=== PATIENT | male | born 1980 | race Two or more races ===

== ENCOUNTER 2017-08-09 23:15 | Emergency (ER) | payer OTHER ==
--- NOTE | 2017-08-09 23:31 | CPEKG ---
Heart Rate: 99 RR Interval: 606 P-R Interval: 136 QRSD Interval: 84 QT Interval: 336 QTC Interval: 432 P Montgomery: 82 QRS Montgomery: 89 T Wave Montgomery: 74 EKG Severity - BORDERLINE ECG - EKG Impression: INCOMPLETE ANALYSIS DUE TO MISSING DATA IN PRECORDIAL LEAD(S) EKG Impression: SINUS RHYTHM EKG Impression: BORDERLINE T ABNORMALITIES, ANT-LAT LEADS Electronically Signed By: Michael Ro 13-Aug-2017 11:39:10
[2017-08-09] MEDS ORDERED: ASPIRIN 81 MG CHEWABLE TAB PO ONE (23:38)
--- NOTE | 2017-08-09 23:44 | EDPHY ---
H & P Stated Complaint: CP x few hours Time Seen by Provider: 08/09/17 23:24 HPI/ROS: HPI The patient presents with chest pain which began at about 8:45 p.m. tonight when he went outside into the cold and was shoveling the snow off of his car. It is been constant ever since, he describes it as an indigestion sort of pain which is worse with deep breaths and with leaning forward. He went inside and took a shower and this improved his symptoms somewhat, however they did persist. He noticed when he went outside again his chest pain became worse and it is a bit better now that he is in the emergency department. He did not have any dizziness, diaphoresis, nausea or vomiting. His pain is worse on the left side of his chest. 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 REVIEW OF SYSTEMS Constitutional: No fever, no chills. Eyes: No discharge. ENT: No sore throat. Cardiovascular: Positive for chest pain, no palpitations. Respiratory: No cough, no shortness of breath. Gastrointestinal: No abdominal pain, no vomiting. Genitourinary: No hematuria. Musculoskeletal: No back pain. Skin: No rashes. Neurological: No headache. PMHx: Familial Mediterranean fever on colchicine Soc Hx: FHx: No family history of early CAD PHYSICAL General Appearance: Alert, no distress Eyes: Pupils equal and round no pallor or injection ENT, Mouth: Mucous membranes moist Respiratory: There are no retractions, lungs are clear to auscultation Cardiovascular: Regular rate and rhythm Gastrointestinal: Abdomen is soft and non-tender, no masses, bowel sounds normal Neurological: A&O, moves all extremities Skin: Warm and dry, no rashes Musculoskeletal: Neck is supple non tender Extremities: symmetrical, full range of motion Psychiatric: Patient is oriented X 3, there is no agitation Source: Patient Exam Limitations: No limitations - Personal History Current Tetanus/Diphtheria Vaccine: Yes Tetanus Vaccine Date: <10 years - Medical/Surgical History Hx Asthma: No Hx Chronic Respiratory Disease: No Hx Diabetes: No Hx Cardiac Disease: No Hx Renal Disease: No Hx Cirrhosis: No Hx Alcoholism: No Hx HIV/AIDS: No Hx Splenectomy or Spleen Trauma: No Other PMH: family mediteranian fever (FMF) - Social History Smoking Status: Never smoked Constitutional: Initial Vital Signs Temperature (C) 36.5 C 08/09/17 23:17 Heart Rate 102 H 08/09/17 23:17 Respiratory Rate 18 08/09/17 23:17 Blood Pressure 131/78 H 08/09/17 23:17 O2 Sat (%) 97 08/09/17 23:17 O2 Delivery Mode Nasal Cannula O2 (L/minute) 2 Allergies/Adverse Reactions: No Known Allergies Allergy (Unverified 08/09/17 23:20) Home Medications: Medication Instructions Recorded Colchicine 08/09/17 Medical Decision Making - Diagnostics EKG Interpretation: EKG: Complete interpretation has been separately recorded in the [employer] [employer] archive. Summary impression: Normal sinus rhythm Imaging Results: Imaging Impressions Chest X-Ray 08/09/17 23:38 Impression: Large left pneumothorax. Results called and discussed with Claudia Krishna MD on 08/09/2017 at 23:59 Repeat chest x-ray shows catheter tip in good position, lung is reinflated, interpreted by me, radiology interpretation is pending Imaging: Discussed imaging studies w/ scallop cutter Radiologist, I viewed and interpreted images myself Procedures: Procedure: Chest tube placement. The indication for the procedure was left-sided large pneumothorax. A timeout was observed and patients identity and correct procedure location confirmed. The patient was prepped in a sterile fashion. The patient was anesthetized with 1% lidocaine with epinephrine. After blunt dissection a 9 [place] chest tube was placed in the 2nd intercostal space at midclavicular line on the left side. The tube was sutured in place and dressed. Post placement chest x-ray demonstrated the tube to be in the appropriate position. Following placement of the tube the patient's condition was stable. The patient tolerated the procedure well there were no complications. The procedure was performed by myself. Differential Diagnosis: This is a 37-year-old male with familial Mediterranean fever who presents with chest pain which began about 3 hr ago while out in the cold shoveling snow off of his car. The pain is like indigestion, worse with leaning forward and with deep breaths. He has not had this pain in many years. With familial Mediterranean fever, patient's can have chest pain related to inflammation of the pleura, pericarditis, sub diaphragmatic irritation, pleural effusion. This can happen with a fever. Vigorous exercise, exposure to cold, motion all stressed can all provoked symptoms. Other causes of the patient's chest pain should also be entertained and these include ACS, pulmonary embolism, GERD. In the emergency department, EKG was obtained and was unremarkable. I got a call from the radiologist who reports that the patient has a large left -sided pneumothorax. I consulted with Dr. Castro of General surgery and together we placed an Arrow pneumothorax chest tube. The patient was observed for about 1 hr, repeat chest x-ray shows tube in appropriate position with re-expanded lung. The patient will be discharged home with chest tube in place. He was taught how to check for air leak and when he does not have 1 for 24 hr, he can follow up with Dr. Castro in the clinic. We have answered all his questions. - Data Points Laboratory Results: Laboratory Results 08/09/17 23:30 08/09/17 23:30 08/09/17 08/09/17 08/09/17 23:30 23:30 23:30 WBC 7.77 10^3/uL 10^3/uL (3.80-9.50) RBC 5.40 10^6/uL 10^6/uL (4.40-6.38) Hgb 15.1 g/dL g/dL (13.7-17.5) Hct 44.2 % % (40.0-51.0) MCV 81.9 fL fL (81.5-99.8) MCH 28.0 pg pg (27.9-34.1) MCHC 34.2 g/dL g/dL (32.4-36.7) RDW 13.6 % % (11.5-15.2) Plt Count 232 10^3/uL 10^3/uL (150-400) MPV 10.0 fL fL (8.7-11.7) Neut % (Auto) 56.4 % % (39.3-74.2) Lymph % (Auto) 32.2 % % (15.0-45.0) [place] % (Auto) 8.4 % % (4.5-13.0) Eos % (Auto) 1.9 % % (0.6-7.6) Baso % (Auto) 0.8 % % (0.3-1.7) Nucleat RBC Rel Count 0.0 % % (0.0-0.2) Absolute Neuts (auto) 4.39 10^3/uL 10^3/uL (1.70-6.50) Absolute Lymphs (auto) 2.50 10^3/uL 10^3/uL (1.00-3.00) Absolute Monos (auto) 0.65 10^3/uL 10^3/uL (0.30-0.80) Absolute Eos (auto) 0.15 10^3/uL 10^3/uL (0.03-0.40) Absolute Basos (auto) 0.06 10^3/uL 10^3/uL (0.02-0.10) Absolute Nucleated RBC 0.00 10^3/uL 10^3/uL (0-0.01) Immature Gran % 0.3 % % (0.0-1.1) Immature Gran # 0.02 10^3/uL 10^3/uL (0.00-0.10) D-Dimer < 0.27 ug/mLFEU ug/mLFEU (0.00-0.50) Sodium 145 mEq/L H mEq/L (134-144) Potassium 4.5 mEq/L mEq/L (3.5-5.2) Chloride 105 mEq/L mEq/L (97-110) Carbon Dioxide 25 mEq/l mEq/l (22-31) Anion Gap 15 mEq/L mEq/L (8-16) BUN 20 mg/dL mg/dL (7-23) Creatinine 0.9 mg/dL mg/dL (0.7-1.3) Estimated GFR > 60 Glucose 99 mg/dL mg/dL (70-100) Calcium 9.7 mg/dL mg/dL (8.5-10.4) Troponin I < 0.012 ng/mL ng/mL (0.000-0.034) C-Reactive Protein < 5.0 mg/L mg/L (<10.0) Medications Given: Discontinued Medications Aspirin (Aspirin) 324 mg PO EDNOW ONE Stop: 08/09/17 23:39 Last Admin: 08/09/17 23:48 Dose: 324 mg Sodium Chloride (Ns) 1,000 mls @ 0 mls/hr IV ONCE ONE PRN Reason: Wide Open Stop: 08/10/17 00:26 Last Admin: 08/10/17 00:25 Dose: 1,000 mls Departure - Departure Disposition: Home, Routine, Self-Care Clinical Impression: Spontaneous pneumothorax Condition: Good Instructions: Spontaneous Pneumothorax (ED), How to Care for Your Chest or Abdominal Catheter (ED) Additional Instructions: Please check once a day for bubbles in your tube by placing the end of the tube in a cup of water and coughing. When the bubbles are gone for 1 day then you can return to have the tube removed. You can call Dr. Castro's office to arrange for the tube to be removed. Referrals: Radha Wilson MD [Primary Care Provider] - As per Instructions Cheko Castro MD [Medical Doctor] - As per Instructions
[2017-08-09 23:50] LABS: PLATELET COUNT 232 10^3/uL (150-400)
[2017-08-10] MEDS ORDERED: NS 1,000 ML IV ONE (00:25)
[2017-08-10 00:46] VITALS: RESP 20
[2017-08-10 01:25] VITALS: BP 113/75; PULSE 69
[2017-08-10 01:45] VITALS: TEMP 99
[2017-08-10 06:07] VITALS: O2SAT 98
--- NOTE | 2017-08-11 22:32 | GCON ---
[f rep st] CONSULTATION REQUESTING PHYSICIAN: Claudia Krishna MD REASON FOR EVALUATION: Pneumothorax. HISTORY OF PRESENTING ILLNESS: 37-year-old healthy male with a significant history for familial Mediterranean fever, presents to the emergency room tonight with a complaint of worsening left chest pain and shortness of breath. He reports that he has had a 2-week prodrome of an upper respiratory type infection with a dry nonproductive cough and sinus type pain. He denied fevers or chills with this event. He reported in retrospect that being out in the cold did make his breathing worse over this time period. Today, while shoveling snow off his car, he developed severe worsening of his left-sided chest pain, bringing him to the emergency room for further evaluation. No prior history of similar complaints. No right-sided chest complaints. No history of trauma. PAST MEDICAL HISTORY: Familial Mediterranean fever. PAST SURGICAL HISTORY: None. MEDICATIONS: Colchicine. ALLERGIES: No known drug allergies. SOCIAL HISTORY: No significant alcohol or tobacco. FAMILY HISTORY: Noncontributory. REVIEW OF SYSTEMS: Notable for a 2-week prodrome of upper respiratory complaints as noted above. Negative 12-point review otherwise. PHYSICAL EXAMINATION: ED VITAL SIGNS: Temperature 36.5, blood pressure 130/80, heart rate 100, respirations 18, 97% saturation on 2 L. GENERAL: The patient is alert, appropriate, mildly uncomfortable. The patient is slender in appearance. Anicteric. NECK: No cervical lymphadenopathy. No jugular venous distention. Trachea midline without crepitus. HEART: Regular. LUNGS: Clear right, distant left. ABDOMEN: Soft, nontender. EXTREMITIES: Unremarkable. NEUROLOGIC: Alert and appropriate x3. SKIN: Without rashes. Chest x-ray with a large left pneumothorax without shift, normal right lung. IMPRESSION: First-time pneumothorax, preceded by a 2-week prodrome upper respiratory infection. suspect probable underlying bleb disease. Recommend percutaneous chest tube placement with further outpatient management. This procedure was performed by Dr. Krishna without complications. A post tube placement chest x-ray showed excellent lung re-expansion. The patient will follow up with my office in the outpatient setting. The patient is aware of the risk of recurrence as well as contralateral pneumothorax. All questions were entertained. /[id number]/MODL MTDD
== END 2017-08-10 01:45 | disposition home or self-care (01) ==
PROC: 0W9B30Z Drainage of Left Pleural Cavity with Drainage Device, Percutaneous Approach (ICD-10-PCS; principal; 2017-08-09)
DX: J93.83 Other pneumothorax (principal)

== ENCOUNTER → 2017-08-19 | Outpatient (CLI) | payer OTHER | LOC: FIMAGING 09:23 | PROVIDERS: ATTEND Surgery | DX: Z97.8 Presence of other specified devices (principal) ==